=== PATIENT | female | born 1975 | race Caucasian/White ===

== ENCOUNTER 2021-12-26 14:25 | Outpatient (CLI) | payer OTHER, SELFPAY ==
--- NOTE | 2021-12-26 14:30 | MR_ITS ---
[address] [address] Phone:?[phone] Fax:?[phone] Referring Physician Information: Nicholas Willis M.D. [id number] [facility] [address] Phone:?[phone] Fax:?[phone] Patient:Dwight Clemente D.O.B:?1975 Sex:?Female Phone:?[phone] [facility] MRN:?[id number] Exam Date:?12/26/2021 ? EXAM: MRI of the LEFT SHOULDER, without contrast CLINICAL INFORMATION: Female, 46 years old, with ongoing left shoulder pain with history of shoulder arthroscopy on 09/12/2021. INDICATION: Evaluate shoulder pain. PRIOR SURGERY: None reported. PLAIN FILMS: None available. COMPARISONS: Left shoulder MRI dated 08/08/2021. TECHNICAL INFORMATION: Using a 1.5T MR scanner and a localizing surface coil: coronal obliques: PD, T2, STIR sagittal obliques: PD, T2 axials: PD, T2 SEDATION: None CONTRAST: None FINDINGS: Bones: Proximal humerus: No fracture or marrow edema/pathology. No humeral Hill-Sachs or reverse Hill-Sachs lesion/impaction or contusion. Glenoid: No fracture or marrow edema/pathology. No osseous Bankart lesion. Rotator cuff and muscles/tendons: Supraspinatus: Mild supraspinatus tendinopathy with a focal area of interstitial delamination at the mid tendon insertion (coronal STIR series 4 image 10). No discrete tendon tear or muscle atrophy. Infraspinatus: Mild infraspinatus tendinopathy, without tendon tear or muscle atrophy. Teres minor: No tendinopathy, tear or atrophy. Subscapularis: No tendinopathy, tear or atrophy. Deltoid: No strain or atrophy. Coracoacromial arch: Acromion morphology: Status post anterior acromioplasty for subacromial decompression, with good result. No os acromiale. Acromiohumeral space: The acromiohumeral space is within normal limits. Coracohumeral space: The coracohumeral space is within normal limits. Acromioclavicular joint: Joint: Mild AC joint arthropathy, with inferior prominence of the distal clavicle that results in a supraspinatus contour abnormality (sagittal PD series 7 image 15). Ligaments: Coracoclavicular ligaments are intact. Bursae: Subacromial-subdeltoid: Mild-moderate subacromial-subdeltoid bursitis. Subcoracoid: No convincing subcoracoid bursal thickening/bursitis. Biceps tendon: The long head of the biceps tendon is present within the bicipital groove. The intra-articular and extra-articular segments are intact without tendinopathy or split/tear. However, there is moderate tenosynovitis (coronal STIR series 4 image 11 and axial T2 series 3 image 49). Glenohumeral joint: Effusion/cyst: Moderate glenohumeral joint effusion, with synovitis. Articular cartilage: Humeral head: Moderate generalized thinning of the articular cartilage throughout the superior and superomedial aspects of the humeral head, with moderate inferomedial marginal osteophytosis. Glenoid: Moderate generalized thinning of the articular cartilage, posteriorly, with mild marginal osteophytosis. Loose bodies: No discrete intra-articular body within the joint. Labrum:?Circumferential degeneration and tearing of the labrum, which is of doubtful clinical significance. No paralabral cyst. Inferior glenohumeral ligament/axillary pouch:?Intact. The axillary pouch is normal in thickness and signal. No evidence of adhesive capsulitis or capsular injury. IMPRESSION: 1. Moderate osteoarthritis of the glenohumeral joint which is essentially unchanged compared to the prior dated 08/08/2021. 2. Mild supraspinatus & infraspinatus tendinopathy. No rotator cuff tendon tear. These findings are essentially unchanged. In fact, the previously described interstitial delamination there is less pronounced on the current study. 3. Status post anterior acromioplasty for subacromial decompression, with good result. However, inferior prominence of the distal clavicle the setting of mild AC joint arthropathy results in a supraspinatus contour abnormality and there is mild/moderate subacromial-subdeltoid bursitis. 4. Moderate biceps tenosynovitis, which is essentially unchanged. No tendinopathy displacement or split/tear. 5. Circumferential degeneration and tearing of the labrum, which is of doubtful clinical significance. BC Electronically signed on 12/27/2021 8:00:00 AM by Peña Thompson M.D.
== END 2021-12-26 14:26 | disposition home or self-care (01) ==
LOC: MRI 14:25
PROVIDERS: PCP Physician Assistant Medical; Visit Provider Orthopaedic Surgery Sports Medicine
DX: M25.512 Pain in left shoulder (principal); M19.012 Primary osteoarthritis, left shoulder; S43.402A Unspecified sprain of left shoulder joint, initial encounter; M75.52 Bursitis of left shoulder; M75.22 Bicipital tendinitis, left shoulder; Z98.890 Other specified postprocedural states
CPT/HCPCS: 73221

== ENCOUNTER 2022-03-13 13:53 | Outpatient (CLI) | payer OTHER, SELFPAY | END 2022-03-13 13:54 | disposition home or self-care (01) | LOC: FRMREF 13:54 | PROVIDERS: PCP Physician Assistant Medical; Visit Provider Physician Assistant Medical | DX: G25.81 Restless legs syndrome (principal); G47.33 Obstructive sleep apnea (adult) (pediatric) | CPT/HCPCS: 82728 ==

== ENCOUNTER 2022-03-25 19:21 | Outpatient (CLI) | payer OTHER, SELFPAY ==
--- NOTE | 2022-04-09 12:15 | W.PM.SLEEP ---
Sleep Study Details Details Interpreting Provider: Steve Fregoso MD Date of Sleep Study: 03/25/22 Sleep Study Details: STUDY TYPE: Home ? BMI:? 33.8 ORDERING PROVIDER:Hugh Almanza INDICATION:? Concerns about sleep apnea ? SLEEP SUMMARY:? Monitor time 486 minutes RESPIRATORY SUMMARY:? AHI is 13.3, supine AHI 23.4, left lateral 11.2, right lateral 10 Low oxygen 85 18.3% of study oxygen less than 90% Snoring% 5.9 PERIODIC LIMB MOVEMENTS OF SLEEP:? Not recorded CARDIAC:? Mean 62.2 IMPRESSION:? Mild obstructive sleep apnea with supine position dependency but apnea present in all positions RECOMMENDATION: CPAP AutoSet 4-17 or dental appliance.
== END 2022-03-25 19:22 | disposition home or self-care (01) ==
LOC: SLEEP 19:21
PROVIDERS: PCP Physician Assistant Medical; Visit Provider Physician Assistant Medical
DX: G47.33 Obstructive sleep apnea (adult) (pediatric) (principal)
CPT/HCPCS: 95806

== ENCOUNTER 2022-07-23 13:36 | Emergency (ER) | payer OTHER, SELFPAY ==
[2022-07-23 14:08] VITALS: BP 148/87; PULSE 69; RESP 18; TEMP 36.3; O2SAT 97; BMI 33.0
== END 2022-07-23 15:42 | disposition left against medical advice (07) ==
PROVIDERS: PCP Physician Assistant Medical
DX: Z53.21 Procedure and treatment not carried out due to patient leaving prior to being seen by health care provider (principal)
CPT/HCPCS: 99199

== ENCOUNTER 2022-07-30 13:57 | Outpatient (CLI) | payer OTHER, SELFPAY ==
[2022-07-30 21:31] LABS: Chloride* 107 mmol/L (96-114); Potassium* 4.4 mmol/L (3.6-5.1); Sodium* 141 mmol/L (135-149)
[2022-07-30 21:33] LABS: Creatinine* 0.8 mg/dL (0.5-1.5); Estimated Glomerular Filt Rate 92 ml/min
[2022-07-30 21:34] LABS: Blood Urea Nitrogen* 19 mg/dL (5-24); Calcium* 9.2 mg/dL (8.4-10.6); Carbon Dioxide* 27 mmol/L (20-32); Glucose* 94 mg/dL (60-115)
== END 2022-07-30 13:58 | disposition home or self-care (01) ==
PROVIDERS: PCP Physician Assistant Medical; Visit Provider Physician Assistant Medical
DX: Z01.818 Encounter for other preprocedural examination (principal)
CPT/HCPCS: 80048

== ENCOUNTER 2022-08-06 09:54 | Day surgery (SDC) | payer OTHER, SELFPAY ==
[2022-08-06] VITALS (14 sets, daily range): BP systolic 88–131; BP diastolic 39–79; PULSE 49–92; RESP 12–16; TEMP 36.2–37.1; O2SAT 90–97; BMI 33.5
[2022-08-06] MEDS: LACTATED RINGERS 1000 ML 1,000 ML 100 ML IV (10:10)
--- NOTE | 2022-08-06 10:19 | SUR.PREOP ---
Pt has had a hysterectomy, no UCG colleceted.
[2022-08-06] MEDS: SODIUM CHLORIDE 0.9 % (FLUSH) 10 ML SYRINGE IVF (10:34)
[2022-08-06] MEDS: CEFAZOLIN 2 GM INJ IVP (10:50)
[2022-08-06] MEDS: BUPIVACAINE 0.25% 30 ML INJECTION (11:00)
--- NOTE | 2022-08-06 11:08 | W.ANESCHARGE ---
Anesthesia Charges Start Date/Time Anesthesia Start Date: 08/06/22 Anesthesia Start Time: 10:42 Stop Date/Time Anesthesia Stop Date: 08/06/22 Anesthesia Stop Time: 12:01
--- NOTE | 2022-08-06 12:02 | W.ANESCHARGE ---
Anesthesia Charges Start Date/Time Anesthesia Start Date: 08/06/22 Anesthesia Start Time: 10:42 Stop Date/Time Anesthesia Stop Date: 08/06/22 Anesthesia Stop Time: 12:01
[2022-08-06] MEDS: fentaNYL 100 MCG/2 ML inj 50 MCG IVP ×2 (12:13→12:31)
--- NOTE | 2022-08-06 12:42 | PM.GSPRC ---
Operative Note Date of procedure: 08/06/22 Pre-op diagnosis: 1. Symptomatic recurrent umbilical hernia. Post-op diagnosis: Same Type of Procedure: 1. Open umbilical hernia repair with mesh. Indications: 47-year-old female with history of previous umbilical hernia repair without mesh presented for evaluation of recurrent umbilical bulge. Patient noticed a bulge 6 months ago. She felt the bulge at the top of her belly button. She feels that it has been increasing in size and started to become painful. The pain was present when she was walking or being active. She felt that the bulge was sometimes a size of a quarter. On clinical exam at the superior aspect of the umbilicus there is a small umbilical bulge palpated and was tender to palpation. This was reducible. Given patient's symptoms and her clinical exam, an open umbilical hernia repair with mesh was recommended. The procedure was discussed in detail. The risks associated the procedure including infection, bleeding, injury to intra-abdominal organs, and hernia recurrence were all discussed with the patient, and she agreed to proceed. Procedure Description: After discussing the risks and benefits of the procedure, the patient signed informed consent.? The operative site was marked and the patient was brought to the operating room and placed on the operating table in supine position.? Care was taken to pad the patient's pressure points.?? The patient was then intubated by anesthesia.?? The operative site was then prepped and draped in the usual sterile fashion.? A time-out was then performed. Local anesthetic was injected at the surgical site. A curvilinear skin incision was made with a scalpel just above umbilicus through a previously well-healed scar. Subcutaneous tissue was dissected with electrocautery down to the hernia sac and anterior fascia. Scar tissue from previous surgery was encountered during this dissection. The hernia sac was dissected off of the anterior fascia and subcutaneous fat around the fascial defect was dissected away from the fascial defect with cautery. Nurolon sutures were noted from previous repair. The recurrence was just inferior to previous repair. The fascial defect was approximately 12 mm. I then developed preperitoneal space for mesh insertion. A medium size Ventralex ST mesh patch was then inserted into preperitoneal space and secured to the fascia using 0-0 Neurolon interrupted stitches. I examined my closure and no defects were identified between the fascia and the mesh. Fascia was re-approximated over the mesh with a running 2-0 Vicryl stitch. Additional local anesthetic was injected into subcutaneous tissues. An umbilicus was tacked down with interrupted 3-0 Vicryl stitches. Subdermal layer was closed with interrupted sutures using 3-0 Vicryl. Skin was closed with 4-0 Monocryl using subcuticular stitch. Steri strips were applied over the incision. I then placed a folded sterile 4x4 gauze over the incision and covered it with tape. All counts were correct at the end of the case. Patient tolerated the procedure well and was transferred to PACU without any complications. Findings: Recurrent umbilical hernia with a recurrence noted inferior to previous repair. Anesthesia: GETA Surgeon: Robles Knutson MD Estimated blood loss (mL): 5 Condition: stable Disposition: PACU
--- NOTE | 2022-08-06 12:47 | SUR.PHASEI ---
patient met discharge criteria per anesthesia
[2022-08-06] MEDS: HYDROCODONE-ACETAMIN 5-325 MG 1 TAB PO (13:48)
== END 2022-08-06 13:59 | disposition home or self-care (01) ==
PROVIDERS: PCP Physician Assistant Medical; Visit Provider Surgery
PROC: (CPT 49591; principal; 2022-08-06 11:15)
DX: K42.9 Umbilical hernia without obstruction or gangrene (principal)
CPT/HCPCS: 49591; 00830; A9270; C1781; J0330; J0690; J1100; J1200; J2250; J2405; J2704; J2710; J2765; J3010; J3490; J7120

== ENCOUNTER 2022-12-06 12:59 | Outpatient (CLI) | payer OTHER, SELFPAY | END 2022-12-06 13:00 | disposition home or self-care (01) | LOC: NFLDREF 12-08 21:17 | PROVIDERS: PCP Physician Assistant Medical; Referring Provider Physician Assistant Medical; Visit Provider Physician Assistant Medical | DX: R22.1 Localized swelling, mass and lump, neck (principal); R59.0 Localized enlarged lymph nodes | CPT/HCPCS: 84443 ==

== ENCOUNTER 2022-12-13 07:20 | Outpatient (CLI) | payer OTHER, SELFPAY ==
--- NOTE | 2022-12-13 08:00 | CRLHL7_ITS ---
For Patients: As a result of the Cures Act, medical imaging exams and procedure reports are released immediately into your electronic medical record. You may view this report before your referring provider. If you have questions, please contact your health care provider. INDICATION: Localized enlarged lymph nodes. COMPARISON: None available. TECHNIQUE: CT examination of the neck is performed using spiral technique during the uneventful intravenous administration of 100 cc of Isovue 370. 3 mm thick axial sections were made along with coronal and sagittal sections. Please note that all CT scans at this facility use dose modulation, iterative reconstruction, and/or weight-based dosing when appropriate to reduce radiation dose to as low as reasonably achievable. FINDINGS: There is no sign of cervical mass or adenopathy on today`s study. The largest lymph node is a right superior jugular chain lymph node, level 2, with short axis diameter of 0.7 centimeters, not reaching size criteria to be described as lymphadenopathy. The salivary glands are normal in appearance. The airway structures are normal in appearance. The visualized posterior fossa, mastoids, skull base, and orbits are normal in appearance. The paranasal sinuses are clear. The great vessels are unremarkable. The thyroid gland is normal in appearance. The visualized upper chest is clear. The visualized upper mediastinum is normal in appearance. There is prominent C6-7 disc degenerative disease with mild diffuse disc bulging and mild posterior osteophytic ridging. There is mild bilateral foraminal stenosis from uncovertebral joint hypertrophy. There is mild C5-6 disc degenerative disease. IMPRESSION: No sign of cervical mass or lymphadenopathy. Mildly prominent right superior jugular chain lymph node not reaching size criteria to be described as lymphadenopathy. Please note that all CT scans at this facility use dose modulation, iterative reconstruction, and/or weight-based dosing when appropriate to reduce radiation dose to as low as reasonably achievable. Dictated by Eduardo Trivedi MD @ 12/13/2022 3:07:32 PM (Electronically Signed)
== END 2022-12-13 07:21 | disposition home or self-care (01) ==
LOC: CT 07:20
PROVIDERS: PCP Physician Assistant Medical; Visit Provider Physician Assistant Medical
DX: R59.0 Localized enlarged lymph nodes (principal); R22.1 Localized swelling, mass and lump, neck
CPT/HCPCS: 70491; Q9967

== ENCOUNTER 2023-10-24 11:31 | Outpatient (CLI) | payer OTHER, SELFPAY ==
--- NOTE | 2023-10-24 12:05 | W.ANESCHARGE ---
Anesthesia Charges Start Date/Time Anesthesia Start Date: 10/24/23 Anesthesia Start Time: 12:18 Stop Date/Time Anesthesia Stop Date: 10/24/23 Anesthesia Stop Time: 12:42
--- NOTE | 2023-10-24 12:10 | W.ANESCHARGE ---
Anesthesia Charges Start Date/Time Anesthesia Start Date: 10/24/23 Anesthesia Start Time: 12:18 Stop Date/Time Anesthesia Stop Date: 10/24/23 Anesthesia Stop Time: 12:42
== END 2023-10-24 11:32 | disposition home or self-care (01) ==
LOC: OP CLINIC 11:32
PROVIDERS: PCP Physician Assistant Medical; Visit Provider Internal Medicine
DX: Z12.11 Encounter for screening for malignant neoplasm of colon (principal); K64.8 Other hemorrhoids
CPT/HCPCS: 00812; 45378; J2704

== ENCOUNTER 2023-11-17 09:38 | Outpatient (CLI) | payer OTHER, SELFPAY | END 2023-11-17 09:39 | disposition home or self-care (01) | LOC: FRMREF 09:39 | PROVIDERS: PCP Physician Assistant Medical; Visit Provider Physician Assistant Medical | DX: S10.86XA Insect bite of other specified part of neck, initial encounter (principal); W57.XXXA Bitten or stung by nonvenomous insect and other nonvenomous arthropods, initial encounter; Z13.228 Encounter for screening for other metabolic disorders; Z13.220 Encounter for screening for lipoid disorders | CPT/HCPCS: 80053; 80061; 86618 ==

== ENCOUNTER 2024-02-05 15:22 | Outpatient (CLI) | payer OTHER, SELFPAY ==
--- NOTE | 2024-02-05 15:40 | CRLHL7_ITS ---
For Patients: As a result of the Cures Act, medical imaging exams and procedure reports are released immediately into your electronic medical record. You may view this report before your referring provider. If you have questions, please contact your health care provider. BILATERAL SCREENING MAMMOGRAM WITH COMPUTER-AIDED DETECTION AND TOMOSYNTHESIS TECHNIQUE: CC and MLO views were obtained. These mammographic images have been obtained using full-field digital technique. These mammographic images were interpreted with the benefit of computer-aided detection. Breast Tomosynthesis was used in this interpretation. COMPARISON FILM: 11/18/22, 07/31/21, 11/03/18. FINDINGS: There are scattered areas of fibroglandular density IMPRESSION: There is no radiographic evidence for malignancy. ASSESSMENT: BI-RADS Category 1: Negative RECOMMENDATION: Routine screening mammogram in 1 year. A lay language report of this examination will be provided to the patient. Nicho Galvan M.D. Diagnostic Radiologist [email or web address] JOSEPH/go / bM/Dictated by: Nicho Galvan MD @ 02/06/2024 10:49:00 AM (Electronically Signed)
== END 2024-02-05 15:23 | disposition home or self-care (01) ==
LOC: MAMMO 15:22
PROVIDERS: PCP Physician Assistant Medical; Visit Provider Physician Assistant Medical
DX: Z12.31 Encounter for screening mammogram for malignant neoplasm of breast (principal)
CPT/HCPCS: 77063; 77067

== ENCOUNTER 2024-07-26 15:11 | Outpatient (CLI) | payer OTHER, SELFPAY | END 2024-07-26 15:12 | disposition home or self-care (01) | LOC: LKVREF 15:12 | PROVIDERS: PCP Physician Assistant Medical | DX: R30.0 Dysuria (principal) | CPT/HCPCS: 87086 ==

== ENCOUNTER 2025-02-16 15:03 | Outpatient (CLI) | payer OTHER, SELFPAY ==
--- NOTE | 2025-02-16 15:20 | CRLHL7_ITS ---
For Patients: As a result of the Century Cures Act, medical imaging exams and procedure reports are released immediately into your electronic medical record. You may view this report before your referring provider. If you have questions, please contact your health care provider. INDICATION: BILATERAL SCREENING MAMMOGRAM, ASYMPTOMATIC 49 Y/O FEMALE COMPARISON: 02/05/2024, 11/18/2022, 07/31/2021 TECHNIQUE: Digital mammogram in CC and MLO projections including computer-aided detection (CAD) and tomosynthesis. BREAST COMPOSITION: There are scattered areas of fibroglandular density. FINDINGS: No suspicious findings. ASSESSMENT: BI-RADS 1 Negative RECOMMENDATION: Annual screening mammogram. A lay language report of this examination will be provided to the patient. Dictated by: Alina Man MD @ 02/16/2025 19:52:17 (Electronically Signed)
== END 2025-02-16 15:04 | disposition home or self-care (01) ==
LOC: MAMMO 15:04
PROVIDERS: PCP Physician Assistant Medical; Visit Provider Physician Assistant Medical
DX: Z12.31 Encounter for screening mammogram for malignant neoplasm of breast (principal)
CPT/HCPCS: 77063; 77067

== ENCOUNTER 2025-03-09 14:58 | Outpatient (CLI) | payer OTHER, SELFPAY | END 2025-03-09 14:59 | disposition home or self-care (01) | LOC: NFLDREF 03-14 15:41 | PROVIDERS: PCP Physician Assistant Medical; Referring Provider Physician Assistant Medical; Visit Provider Physician Assistant Medical | DX: E05.90 Thyrotoxicosis, unspecified without thyrotoxic crisis or storm (principal); G25.81 Restless legs syndrome; F41.9 Anxiety disorder, unspecified; Z13.6 Encounter for screening for cardiovascular disorders | CPT/HCPCS: 80053; 80061; 84439; 84443 ==

== ENCOUNTER 2025-03-10 14:55 | Outpatient (CLI) | payer OTHER, SELFPAY | END 2025-03-10 14:56 | disposition home or self-care (01) | LOC: NFLDREF 03-15 08:23 | PROVIDERS: PCP Physician Assistant Medical; Referring Provider Physician Assistant Medical; Visit Provider Physician Assistant Medical | DX: R79.89 Other specified abnormal findings of blood chemistry (principal) | CPT/HCPCS: 84439 ==

== ENCOUNTER 2025-04-07 14:52 | Outpatient (CLI) | payer OTHER, SELFPAY | END 2025-04-07 14:53 | disposition home or self-care (01) | LOC: NFLDREF 04-11 15:42 | PROVIDERS: PCP Physician Assistant Medical; Referring Provider Physician Assistant Medical; Visit Provider Physician Assistant Medical | DX: E05.90 Thyrotoxicosis, unspecified without thyrotoxic crisis or storm (principal) | CPT/HCPCS: 84443 ==